=== PATIENT | male | born 1975 ===

== ENCOUNTER → 2024-06-05 | Outpatient (CLI) | payer OTHER ==
[2024-06-05 14:54] LABS: Stool Occult Bld Immuno 1 Positive (NEGATIVE)
== END ==
LOC: LAB 12:02 → LAB SHORT 12:02
PROVIDERS: Physician Assistant
DX: Z12.11 Encounter for screening for malignant neoplasm of colon (principal)
CPT/HCPCS: 82274

== ENCOUNTER 2024-10-23 11:38 | Day surgery (SDC) | payer OTHER ==
[~2024-10-23] VITALS: Ht 172.7 cm; Wt 83.5 kg
[2024-10-23] MEDS ORDERED: Lactated Ringer's 1,000 ML IV ONE ×2 (13:57→14:10)
[2024-10-23] MEDS ORDERED: propofoL 50 ML IV ONE ×2 (14:09→14:40)
== END 2024-10-23 15:38 | disposition home or self-care (01) ==
LOC: ORSCSDS 11:38
PROVIDERS: Internal Medicine Gastroenterology
PROC: 0DBM8ZX Excision of Descending Colon, Via Natural or Artificial Opening Endoscopic, Diagnostic (ICD-10-PCS; principal; 2024-10-23 13:15)
PROC: 0DBN8ZX Excision of Sigmoid Colon, Via Natural or Artificial Opening Endoscopic, Diagnostic (ICD-10-PCS; principal; 2024-10-23 13:15)
PROC: 0DJ08ZZ Inspection of Upper Intestinal Tract, Via Natural or Artificial Opening Endoscopic (ICD-10-PCS; 2024-10-23 13:15)
DX: K62.5 Hemorrhage of anus and rectum (principal); K21.9 Gastro-esophageal reflux disease without esophagitis; D12.4 Benign neoplasm of descending colon; K63.5 Polyp of colon; K64.8 Other hemorrhoids
CPT/HCPCS: 88305; J2704; J7120